=== PATIENT | female | born 1995 | race Caucasian/White ===

== ENCOUNTER 2022-06-11 10:22 | Emergency (ER) | payer MEDICAID, OTHER ==
[~2022-06-11] VITALS: Ht 165.1 cm; Wt 75.0 kg
[2022-06-11] MEDS ORDERED: IBUPROFEN 600MG TABLET PO STA (12:51)
[2022-06-11] MEDS ORDERED: IBUP-2029 PO (14:17)
== END 2022-06-11 16:02 | disposition home or self-care (01) ==
LOC: ER 10:40
DX: S92.342A Displaced fracture of fourth metatarsal bone, left foot, initial encounter for closed fracture (principal); W51.XXXA Accidental striking against or bumped into by another person, initial encounter; Y93.89 Activity, other specified; Y92.89 Other specified places as the place of occurrence of the external cause; Y99.8 Other external cause status
CPT/HCPCS: 73630; 99283